=== PATIENT | female | born 1950 | race Caucasian/White ===

== ENCOUNTER 2017-06-05 12:16 | Inpatient (IN) | payer MEDICAID ==
[2017-06-05] MEDS: CEFEPIME 1GM/50 ML (PMX) 50 ML IVPB (13:31)
[2017-06-05] MEDS: SOD CHLORIDE 0.9% 1,000 ML IV (13:31)
[2017-06-05 13:32] LABS: ADD MAN DIFF? NO
[2017-06-05 13:33] LABS: BASOPHILS % 0.4 % (0.0-2.0); EOSINOPHILS # 0.2 10^3/ul (0.0-0.5); EOSINOPHILS % 2.4 % (0.0-7.0); HEMATOCRIT 39.9 % (37.0-47.0); HEMOGLOBIN 13.2 g/dl (12.0-16.0); LYMPHOCYTES # 0.8 10^3/ul (0.8-2.9); LYMPHOCYTES % 12.1 % (15.0-51.0); MEAN CORPUSCULAR HEMOGLOBIN 27.8 pg (29.0-33.0); MEAN CORPUSCULAR HGB CONC 33.1 g/dl (32.0-37.0); MEAN CORPUSCULAR VOLUME 84.2 fl (82.0-101.0); MONOCYTE # 0.4 10^3/ul (0.3-0.9); NEUTROPHIL # 5.3 10^3/ul (1.6-7.5); NEUTROPHILS % 78.5 % (39.0-77.0); PLATELET COUNT 311 10^3/UL (140-415); RED BLOOD COUNT 4.74 10^6/ul (4.20-5.40); RED CELL DISTRIBUTION WIDTH 14.4 % (11.5-14.5)
[2017-06-05 13:33] LABS: WHITE BLOOD COUNT 6.7 10^3/ul (4.8-10.8)
[2017-06-05 13:56] LABS: ALANINE AMINOTRANSFERASE 24 IU/L (13-69); ALBUMIN 4.1 g/dl (3.3-4.9); ALBUMIN/GLOBULIN RATIO 1.36; ALKALINE PHOSPHATASE 94 IU/L (42-121); ANION GAP 16 (8-16); ASPARTATE AMINO TRANSFERASE 24 IU/L (15-46); BLOOD UREA NITROGEN 10 mg/dl (7-20); CALCIUM 8.8 mg/dl (8.4-10.2); CARBON DIOXIDE 24 mmol/L (21-31); CHLORIDE 104 mmol/L (97-110); CREATININE 0.73 mg/dl (0.44-1.00); GLUCOSE 185 mg/dl (70-220); POTASSIUM 3.7 mmol/L (3.5-5.1); SODIUM 140 mmol/L (135-144); TOTAL PROTEIN 7.1 g/dl (6.1-8.1)
[2017-06-05] MEDS: VANCOMYCIN 1 GM (PMX) 250 ML IVPB (14:15)
[2017-06-05] MEDS: ALBUTEROL 0.083% (NEB) 2.5 MG/3 ML AMP INH (14:41)
[2017-06-05] MEDS: ALBUTEROL 0.083% (NEB) 2.5 MG/3 ML AMP NEB (15:50)
[2017-06-05 17:25] LABS: LACTIC ACID 1.6 mmol/L (0.5-2.0)
[2017-06-05] MEDS ORDERED: ACETAMINOPHEN 325 MG TAB PO (18:00)
[2017-06-05] MEDS ORDERED: ONDANSETRON 4 MG INJ IV (18:00)
[2017-06-06] MEDS ORDERED: morphine 2 MG INJ IV (05:00)
[2017-06-06] MEDS ORDERED: NACL 0.9% 3 ML SYG IV (05:00)
[2017-06-06] MEDS ORDERED: ONDANSETRON 4 MG INJ IV (05:00)
[2017-06-06] MEDS ORDERED: ACETAMINOPHEN 325 MG TAB PO (05:00)
[2017-06-06] MEDS: ALBUTEROL/IPRATROPIUM (NEB) 3 ML AMP HHN ×3 (05:21→17:00)
[2017-06-06] MEDS: METHYLPREDNISOLONE 125 MG INJ IV (05:30)
[2017-06-06] MEDS: GUAIFENESIN/CODEINE 5ML CUP PO ×4 (05:30→21:16)
[2017-06-06] MEDS: LEVOFLOXACIN 500MG/D5W (PMX) 100 ML IVPB (05:32)
[2017-06-06 06:23] LABS: ADD MAN DIFF? NO
[2017-06-06 06:38] LABS: WHITE BLOOD COUNT 6.9 10^3/ul (4.8-10.8)
[2017-06-06 06:38] LABS: BASOPHILS % 0.4 % (0.0-2.0); EOSINOPHILS # 0.5 10^3/ul (0.0-0.5); EOSINOPHILS % 7.5 % (0.0-7.0); HEMATOCRIT 36.2 % (37.0-47.0); HEMOGLOBIN 11.9 g/dl (12.0-16.0); LYMPHOCYTES # 1.7 10^3/ul (0.8-2.9); LYMPHOCYTES % 24.9 % (15.0-51.0); MEAN CORPUSCULAR HEMOGLOBIN 27.6 pg (29.0-33.0); MEAN CORPUSCULAR HGB CONC 32.9 g/dl (32.0-37.0); MEAN PLATELET VOLUME 11.2 fl (7.4-10.4); MONOCYTE # 0.5 10^3/ul (0.3-0.9); MONOCYTES % 6.9 % (0.0-11.0); NEUTROPHIL # 4.2 10^3/ul (1.6-7.5); PLATELET COUNT 269 10^3/UL (140-415); RED BLOOD COUNT 4.31 10^6/ul (4.20-5.40); RED CELL DISTRIBUTION WIDTH 14.6 % (11.5-14.5)
[2017-06-06 07:00] LABS: ALANINE AMINOTRANSFERASE 30 IU/L (13-69); ALBUMIN 3.7 g/dl (3.3-4.9); ALBUMIN/GLOBULIN RATIO 1.32; ALKALINE PHOSPHATASE 96 IU/L (42-121); ANION GAP 14 (8-16); ASPARTATE AMINO TRANSFERASE 24 IU/L (15-46); BILIRUBIN,INDIRECT 1.3 mg/dl (0-1.1); BILIRUBIN,TOTAL 1.3 mg/dl (0.2-1.3); BLOOD UREA NITROGEN 6 mg/dl (7-20); CALCIUM 8.6 mg/dl (8.4-10.2); CARBON DIOXIDE 24 mmol/L (21-31); CHLORIDE 107 mmol/L (97-110); CREATININE 0.52 mg/dl (0.44-1.00); GLUCOSE 87 mg/dl (70-220); POTASSIUM 3.3 mmol/L (3.5-5.1); SODIUM 142 mmol/L (135-144); TOTAL PROTEIN 6.5 g/dl (6.1-8.1)
[2017-06-06] MEDS: ALBUTEROL HFA 8 GM INHALER INH (08:39)
[2017-06-06] MEDS: HEPARIN 5,000 UNIT/0.5 ML VIAL SC ×2 (08:39→21:17)
[2017-06-06] MEDS ORDERED: ALBUTEROL/IPRATROPIUM (NEB) 3 ML AMP HHN (10:30)
[2017-06-06 11:30] LABS: MAGNESIUM 1.9 mg/dl (1.7-2.5)
[2017-06-06] MEDS: POTASSIUM CHLORIDE (SR) 20 MEQ TAB PO (12:21)
[2017-06-06] MEDS: METHYLPREDNISOLONE 40 MG INJ IV ×2 (14:06→21:16)
[2017-06-06] MEDS: MONTELUKAST 10 MG TAB PO (21:16)
[2017-06-06] MEDS: BRIMONIDINE 0.15% 5 ML OPH BOTH EYES (21:24)
[2017-06-06] MEDS: DORZOLAMIDE/TIMOLOL 10 ML OPH BOTH EYES (21:24)
[2017-06-07] MEDS: GUAIFENESIN/CODEINE 5ML CUP PO ×3 (01:00→08:38)
[2017-06-07] MEDS: LEVOFLOXACIN 500MG/D5W (PMX) 100 ML IVPB (05:17)
[2017-06-07] MEDS: METHYLPREDNISOLONE 40 MG INJ IV ×2 (05:17→21:17)
[2017-06-07] MEDS: BRIMONIDINE 0.15% 5 ML OPH BOTH EYES ×3 (05:19→21:23)
[2017-06-07] MEDS: DORZOLAMIDE/TIMOLOL 10 ML OPH BOTH EYES ×3 (05:19→21:23)
[2017-06-07 06:01] LABS: ADD MAN DIFF? NO
[2017-06-07 06:04] LABS: WHITE BLOOD COUNT 10.7 10^3/ul (4.8-10.8)
[2017-06-07 06:04] LABS: BASOPHILS % 0.1 % (0.0-2.0); EOSINOPHILS % 0.2 % (0.0-7.0); HEMATOCRIT 34.6 % (37.0-47.0); HEMOGLOBIN 11.5 g/dl (12.0-16.0); LYMPHOCYTES # 1.5 10^3/ul (0.8-2.9); LYMPHOCYTES % 13.9 % (15.0-51.0); MEAN CORPUSCULAR HGB CONC 33.2 g/dl (32.0-37.0); MEAN CORPUSCULAR VOLUME 84.2 fl (82.0-101.0); MEAN PLATELET VOLUME 11.1 fl (7.4-10.4); MONOCYTE # 0.7 10^3/ul (0.3-0.9); MONOCYTES % 6.8 % (0.0-11.0); NEUTROPHIL # 8.4 10^3/ul (1.6-7.5); NEUTROPHILS % 78.6 % (39.0-77.0); PLATELET COUNT 265 10^3/UL (140-415); RED BLOOD COUNT 4.11 10^6/ul (4.20-5.40); RED CELL DISTRIBUTION WIDTH 14.6 % (11.5-14.5)
[2017-06-07 06:40] LABS: ANION GAP 14 (8-16); BLOOD UREA NITROGEN 11 mg/dl (7-20); CALCIUM 9.4 mg/dl (8.4-10.2); CARBON DIOXIDE 23 mmol/L (21-31); CHLORIDE 106 mmol/L (97-110); CREATININE 0.57 mg/dl (0.44-1.00); GLUCOSE 121 mg/dl (70-220); MAGNESIUM 1.8 mg/dl (1.7-2.5); PHOSPHORUS 4.2 mg/dl (2.5-4.9); POTASSIUM 4.6 mmol/L (3.5-5.1); SODIUM 138 mmol/L (135-144)
[2017-06-07] MEDS: HEPARIN 5,000 UNIT/0.5 ML VIAL SC ×2 (08:38→21:21)
[2017-06-07] MEDS: ALBUTEROL/IPRATROPIUM (NEB) 3 ML AMP HHN ×4 (09:42→22:21)
[2017-06-07] MEDS: GUAIFENESIN/DM 5ML CUP PO ×5 (10:00→22:44)
[2017-06-07] MEDS: BENZONATATE 100 MG CAP PO ×2 (13:54→21:17)
[2017-06-07] MEDS: MONTELUKAST 10 MG TAB PO (21:17)
[2017-06-08] MEDS: GUAIFENESIN/DM 5ML CUP PO ×5 (01:24→18:03)
[2017-06-08] MEDS: LEVOFLOXACIN 500MG/D5W (PMX) 100 ML IVPB (05:34)
[2017-06-08] MEDS: BRIMONIDINE 0.15% 5 ML OPH BOTH EYES ×2 (05:34→13:24)
[2017-06-08] MEDS: DORZOLAMIDE/TIMOLOL 10 ML OPH BOTH EYES ×2 (05:34→13:24)
[2017-06-08] MEDS: ALBUTEROL/IPRATROPIUM (NEB) 3 ML AMP HHN ×3 (09:14→18:31)
[2017-06-08] MEDS: BENZONATATE 100 MG CAP PO ×2 (09:36→13:24)
[2017-06-08] MEDS: HEPARIN 5,000 UNIT/0.5 ML VIAL SC (09:36)
[2017-06-08] MEDS: METHYLPREDNISOLONE 40 MG INJ IV (09:37)
[2017-06-08] MEDS: INFLUENZA VIRUS VACCINE 0.5 ML (DISPENSING) IM* (12:11)
== END 2017-06-08 18:32 | disposition home or self-care (01) | DRG 203 ==
LOC: PP2 23:07 → E/R 12:16 → PP2 17:33
DX: J45.901 Unspecified asthma with (acute) exacerbation (principal); I10 Essential (primary) hypertension; Z87.891 Personal history of nicotine dependence; J40 Bronchitis, not specified as acute or chronic; I16.0 Hypertensive urgency
CPT/HCPCS: 36415; 71045; 80048; 80053; 83605; 83735; 84100; 85025; 87040; 87400; 90686; 94640; 94664; 96374; 96375; 99285-25; G0378

== ENCOUNTER 2017-09-01 21:01 | Emergency (ER) | payer MEDICAID ==
[2017-09-01] MEDS: DIPHENHYDRAMINE 50 MG CAP PO (22:56)
[2017-09-01] MEDS: predniSONE 20 MG TAB PO (22:56)
== END 2017-09-02 00:25 | disposition home or self-care (01) ==
LOC: FTE 09-02 00:25
DX: L29.9 Pruritus, unspecified (principal)
CPT/HCPCS: 99283; J7512